=== PATIENT | female | born 1995 | race Caucasian/White ===

== ENCOUNTER 2016-08-04 00:41 | Emergency (ER) | payer OTHER ==
[2016-08-04 02:35] LABS: CALCIUM 8.8 mg/dL (8.5-10.1); CHLORIDE SERUM 106 mmol/L (98-107); CREATININE SERUM 0.8 mg/dL (0.6-1.0); GFR1 > 60 mL/min; GLUCOSE SERUM 107 mg/dL (74-106); POTASSIUM SERUM 3.6 mmol/L (3.5-5.1); SODIUM SERUM 141 mmol/L (136-145)
[2016-08-04 02:39] LABS: BASOPHIL % 0.4 % (0-2); PLATELET COUNT 389 x10^3mcL (130-400); RED CELL DISTRIBUTION WIDTH 13.7 % (11.5-14.5)
[2016-08-04 02:46] LABS: ALBUMIN 4.1 g/dL (3.4-5.0); ALKALINE PHOSPHATASE 102 U/L (46-116); ALT/SGPT 27 U/L (14-59); AMYLASE 55 U/L (25-115); AST/SGOT 18 U/L (15-37); BILIRUBIN TOTAL 0.6 mg/dL (0.20-1.00); LIPASE 71 IU/L (73-393); TOTAL PROTEIN, SERUM 7.7 g/dL (6.4-8.2)
[2016-08-04 04:12] VITALS: BP 104/77
== END 2016-08-04 04:12 | disposition home or self-care (01) ==
LOC: ED 00:41
PROVIDERS: Emergency Medicine
DX: A08.4 Viral intestinal infection, unspecified (principal); Z90.89 Acquired absence of other organs
CPT/HCPCS: C9113; J2405; J2765

== ENCOUNTER 2017-08-23 20:15 | Emergency (ER) | payer OTHER ==
[~2017-08-23] VITALS: Ht 175.3 cm; Wt 64.4 kg
[2017-08-23 20:16] VITALS: Ht 175.3 cm; Wt 64.4 kg
[2017-08-23 21:21] VITALS: BP 120/66
== END 2017-08-23 21:50 | disposition home or self-care (01) ==
LOC: ED 20:15
DX: O9A.212 Injury, poisoning and certain other consequences of external causes complicating pregnancy, second trimester (principal); S90.32XA Contusion of left foot, initial encounter; Z3A.18 18 weeks gestation of pregnancy; W22.8XXA Striking against or struck by other objects, initial encounter; Y93.89 Activity, other specified; Y92.89 Other specified places as the place of occurrence of the external cause; Y99.8 Other external cause status

== ENCOUNTER 2018-10-15 09:32 | Emergency (ER) | payer OTHER ==
[~2018-10-15] VITALS: Ht 172.7 cm; Wt 71.2 kg
[2018-10-15 09:34] VITALS: Ht 172.7 cm; Wt 71.2 kg
[2018-10-15 11:39] VITALS: BP 100/62
== END 2018-10-15 11:39 | disposition home or self-care (01) ==
LOC: ED 09:32
DX: J20.9 Acute bronchitis, unspecified (principal)

== ENCOUNTER 2018-10-27 06:07 | Emergency (ER) | payer OTHER ==
[~2018-10-27] VITALS: Ht 172.7 cm; Wt 72.1 kg
[2018-10-27 06:20] VITALS: Ht 172.7 cm; Wt 72.1 kg
[2018-10-27 08:02] VITALS: BP 112/53
== END 2018-10-27 08:02 | disposition home or self-care (01) ==
LOC: ED 06:07
DX: A37.90 Whooping cough, unspecified species without pneumonia (principal); J02.9 Acute pharyngitis, unspecified; Z90.89 Acquired absence of other organs